=== PATIENT | male | born 1935 | race Caucasian/White ===

== ENCOUNTER 2019-02-24 20:24 | Emergency (ER) | payer OTHER, MEDICARE, SELFPAY | END 2019-02-24 23:02 | disposition home or self-care (01) | PROVIDERS: Emergency Provider Emergency Medicine; Family Provider Family Medicine; Visit Provider Emergency Medicine | DX: N40.1 Benign prostatic hyperplasia with lower urinary tract symptoms (principal); R33.8 Other retention of urine; G89.29 Other chronic pain; Z86.73 Personal history of transient ischemic attack (TIA), and cerebral infarction without residual deficits; I10 Essential (primary) hypertension; E11.9 Type 2 diabetes mellitus without complications; Z79.4 Long term (current) use of insulin; Z79.02 Long term (current) use of antithrombotics/antiplatelets; Z88.2 Allergy status to sulfonamides; Z87.891 Personal history of nicotine dependence | CPT/HCPCS: 36415; 80048; 81001; 85025; 87086; 99283 ==